=== PATIENT | female | born 1985 | race Caucasian/White ===

== ENCOUNTER → 2017-07-17 09:59 | Outpatient (CLI) | payer MEDICAID, SELFPAY ==
[2017-07-21 12:54] LABS: HPV APTIMA, High Risk Negative (Negative)
== END ==
PROVIDERS: Visit Provider Obstetrics & Gynecology
DX: Z12.4 Encounter for screening for malignant neoplasm of cervix (principal)
CPT/HCPCS: 88175; G0145

== ENCOUNTER → 2017-12-05 15:05 | Outpatient (CLI) | payer OTHER, MEDICAID, SELFPAY ==
[2017-12-05 18:00] LABS: Chlamydia Trachomatis by PCR Negative (Negative); Neisserai gonorrhoeae by PCR Negative (Negative); Probe Check PASS; Sample Adequacy Control PASS; Specimen Processing Control PASS; Trichomonas Vag DNA by PCR Negative (Negative)
== END ==
PROVIDERS: Visit Provider Obstetrics & Gynecology
DX: Z11.3 Encounter for screening for infections with a predominantly sexual mode of transmission (principal)
CPT/HCPCS: 87491; 87591; 87661

== ENCOUNTER → 2020-04-28 09:22 | Outpatient (CLI) | payer OTHER, MEDICAID, SELFPAY ==
[2020-05-03 16:24] LABS: HPV APTIMA, High Risk Negative (Negative)
== END ==
PROVIDERS: Visit Provider Student in an Organized Health Care Education/Training Program
DX: Z12.4 Encounter for screening for malignant neoplasm of cervix (principal)
CPT/HCPCS: 36415; 84146; 87624; 88175; G0145

== ENCOUNTER 2020-06-01 12:33 | Day surgery (SDC) | payer OTHER, MEDICAID, SELFPAY ==
--- NOTE | 2020-05-26 10:43 | PCM.HPOB.BLA ---
History and Physical Date of Admission: 06/01/20 HISTORY OF PRESENT ILLNESS: On 05/26/2020, Nika Rivera, a 34 year old female 2 0 0 0 2, presented for hysteroscopy, dilation and curettage, endometrial ablation Reports irregular menses that occur every other week. Bleeding is heavy. Associated signs and symptoms are cramping, fatigue, headaches, breast tenderness, and painful IC. ALLERGIES: No Known Drug Allergies MEDICATIONS HISTORY: Patient is also takin. bupropion HCl SR 150 mg tablet,12 hr sustained-release, One pill by mouth twice a day PAST HISTORY: Denies SURGICAL HISTORY: 1. , x2 2006, 2010 2. tubal 3. [place] Teeth Removal MENSTRUAL HISTORY: LMP Known?- DefiniteAmount/Duration - 6-21 days, Regularity - Irregular, Frequency - monthly days, LMP - 05/18/20, Age Onset Menarche - 12 PAST PREGNANCIES: Total Pregnancies - 2; Full Term Pregnancies - 2; Premature - 0; Abortions, Induced - 0; Abortions, Spontaneous - 0; Ectopics - 0; Multiple Births - 0; Living Children - 2 FAMILY HISTORY: Father - Heart disorder; MaternalGreatgrandparent - Ovarian Carcinoma; SOCIAL HISTORY: Alcohol Use - RARELY Smoking - 10 cigarettes a day Drugs - denies BP- 104/62 Sitting, Right arm, regular cuff Weight- 136.60 lbs Height- 63.00 inch BMI:24.25 REVIEW OF SYSTEMS: GENERAL - Denies fever, or chills SKIN - Denies skin changes EYES - Denies visual changes EARS - Denies difficulty hearing NOSE - Denies nasal congestion or bleeding MOUTH - Denies sore throat or difficulty swallowing NECK - Denies pain or swelling RESPIRATORY - Denies shortness of breath or wheezing CARDIOVASCULAR - Denies palpitations or chest pain GASTROINTESTINAL - Denies nausea, vomiting, diarrhea, constipation GENITOURINARY - Denies dysuria, frequency of urination, incontinence of urine MUSCULOSKELETAL - Denies joint or muscle pain NEUROLOGICAL - Denies localized numbness or weakness PSYCHIATRIC - Denies depression or anxiety ENDOCRINE - Denies heat or cold intolerance, weight loss or gain HEMATO-IMMUNOLOGIC - Denies excesive bleeding with cuts CONSTITUTIONAL - NAD, well nourished, and well developed SKIN - No rash, lesions, or ulcers HEENT - Normocephalic, PERRLA, EOMI NECK - No nodes, no nuchal rigidity and thyroid normal size and texture LYMPH NODES - Palpation of lymph nodes in neck and groins within normal limits LUNGS - CTA x2 without wheezes, crackles or rales CARDIAC - Regular rate and rhythm without rubs, murmurs, or gallops ABDOMEN - Without hepatosplenomegaly, distention, masses, rebound, or guarding; normal bowel sounds; no hernias EXTREMITIES - No edema or calf tenderness NEUROLOGICAL - Cranial nerves II-XII grossly intact PSYCHIATRIC - A and O to time, place, person, mood and affect DETAILED PELVIC EXAM External Genital Vagina - non-tender without lesions Urethra/Urethral Meatus - non-tender Bladder - non-tender Vagina - vaginal clark are pink and moist without loss of rugae and no evidence of atropy Cervix - without cervical motion tenderness and has normal size and features without evident lesions Uterus - 5-6 cm in size, mobile and nontender Adnexa - clear without massess or tenderness ASSESSMENT: 1. Excessive And Frequent Menstruation With Regular Cycle 2. Routine Gynecologic Exam no abnormal findings PLAN BY DIAGNOSIS: 1. Excessive And Frequent Menstruation With Regular Cycle Heavy menses., Irregular. Planned for hysteroscopy, D and ablation R/B/A discussed. RIsks include but are not limited to: risk of bleeding to the point of transfusion, infection, injury to surrounding tissues, uterine perforation, ICU admission, VTE. Pt aware consent signed.
[2020-05-26 11:43] LABS: Hematocrit 39.7 % (37-47); Hemoglobin 12.3 g/dL (12.0-15.0); Mean Corpuscular Hgb 26.9 pg (27.0-32.0); Mean Corpuscular Volume 86.7 fL (81-99); Platelet Count 261 K/mm3 (150-450); RBC Distribution Width CV 15.3 % (11.6-14.6); RBC Distribution Width SD 47.8 fl (35.1-43.9); Red Blood Count 4.58 M/mm3 (4.2-5.4); White Blood Count 5.2 K/mm3 (4.4-11.0)
--- NOTE | 2020-06-01 | EMB_PTH ---
PATIENT: DEMETRIUS VALLE LOC: [facility] [place] U#:[id number] AGE/SX: 34/F ROOM: RE06/01/[address]: Dr. Kim Patel DO : 1985 BED: DIS: 06/01/2020 SPEC #: [id number] RECD: 06/02/20 07:41 STATUS: ZANDRA REClyde #: [id number] NEENA: 06/01/20 00:[address]: Kim Patel DEPT: SURGICAL PATHOLOGY RECD BY: Isac Jones ENTERED: 06/02/20 08:07 SP TYPE: ENDOM BX/C DIOGENES DR: Dr. Fritz Culp MD Tissues: Endometrium, NOS Procedures: Surgery Specimen Level IV HEADER OPERATION: Hysteroscopy, D & C Briseida PRE-OP DIAGNOSIS: Excessive and frequent menstruation TISSUE SUBMITTED: Endometrial curettings MICROSCOPIC DIAGNOSIS Endometrium, curettings: Secretory endometrium. AM:francois 06/05/2020 MICROSCOPIC DESCRIPTION Slides are reviewed. GROSS DESCRIPTION Received in fixative is one container labeled with the patient's name and designated endometrial curettings. The specimen consists of multiple irregular fragments of light fowler soft tissue that in aggregate measure 2.8 x 1 x 0.1 cm. The specimen is totally submitted in one cassette. / AM:francois 06/02/20 TC:5 CPT: 50525
[2020-06-01] MEDS: Lactated Ringers 1,000 ML 100 ML IV ×2 (12:00→16:31)
[2020-06-01 13:40] VITALS: BP 105/68; PULSE 78; RESP 16; TEMP 37.3; O2SAT 100; BMI 23.8
--- NOTE | 2020-06-01 15:33 | PCM.OPRPT ---
Report of Operation Date of Procedure: 06/01/20 Pre-Operative Diagnosis: Menorrhagia Post-Operative Diagnosis: Menorrhagia Surgery/Procedure Performed:: Hysteroscopy, dilation and curettage, endometrial ablation Description of Surgical Findings:: Normal-appearing external genitalia. Minimal uterine descensus. Uterus sounded 8 cm, cervical length 4 cm. Fluffy endometrial lining noted. Type of Anesthesia:: MAC Specimen's removed: Endometrial curettings Estimated Blood Loss (mL): 5 cc Fluids Replaced: 1000 cc Description of Procedure: Patient taken to the operating room, MAC anesthesia induced. Patient placed in the dorsal lithotomy position and prepped and draped in the usual sterile fashion. Bladder drained approximately 150 cc clear urine. Weighted speculum placed in posterior vagina and Vazquez retractor used to visualize the cervix which was grasped with single-tooth tenaculum. Cervix sequentially dilated and uterus sounded to 8 cm. Hysteroscope placed through the cervical canal and inspection of the endometrial cavity completed noting fluffy endometrial lining. Thickened endometrium blocked visualization of tubal ostia. Hysteroscope removed. Briseida device opened and placed through the cervical canal, and in place. Briseida passed all 3 safety checks and ablation was completed. Device removed. Hysteroscope replaced with inspection of the medial cavity noting ablation. Removed. Single-tooth tenaculum removed from anterior lip of the cervix. Right tenaculum site was oozing, silver nitrate was used and applied at this location, continued oozing noted. 1 [id number] stitch placed at the right tenaculum site with hemostasis. Weighted speculum removed. At the end of the procedure all needle, lap, sponge counts correct x3. - Admit VTE Documentation VTE Present on Admission: No VTE Mechan Device Prophylaxis: SCD's
--- NOTE | 2020-06-01 15:34 | DCINST_ITS ---
Discharge Activity: Return to Normal Activity, May Shower May resume sexual activity in: 3 weeks Weight Bearing Status: Weight bearing as tolerated Call your doctor if you observe: Fever of 101 or Higher, Coldness, Increased Pain, Inability to urinate, Inability to have a bowel movement, Using more than one pad per hour, Uncontrolled pain Allergies/Adverse Reactions: Allergies No Known Allergies Allergy (Verified 06/01/20 13:38) Medications to take at Discharge Bupropion HCl [Wellbutrin Xl] 150 mg PO BID 05/25/20 Primary Care Physician: Fritz Culp MD [Primary Care Provider] - Test Results: Test results from this visit will be discussed in further detail at your follow- up appointment, if applicable. Please Follow Up With: Kim Patel DO When: 2 weeks
[2020-06-01] MEDS: Silver Nitrate (BKC) 1 EACH (16:22)
[2020-06-01 16:35] VITALS: BP 100/62; BP 105/68; PULSE 89; RESP 16; TEMP 36.1; O2SAT 100
[2020-06-01 16:40] VITALS: BP 101/65; BP 105/68; PULSE 94; RESP 16; O2SAT 100
[2020-06-01 16:45] VITALS: BP 105/68; BP 105/75; PULSE 88; RESP 16; O2SAT 100
[2020-06-01 16:50] VITALS: BP 105/68; BP 105/75; PULSE 89; RESP 16; TEMP 36.2; O2SAT 100
[2020-06-01 17:28] VITALS: BP 105/68; BP 110/75; PULSE 70; RESP 16; TEMP 36.6; O2SAT 100
== END 2020-06-01 17:36 | disposition home or self-care (01) ==
LOC: SDC 12:34 → AC 12:34
PROVIDERS: PCP Family Medicine; Referring Provider Student in an Organized Health Care Education/Training Program; Visit Provider Student in an Organized Health Care Education/Training Program
PROC: 0U5B8ZZ Destruction of Endometrium, Via Natural or Artificial Opening Endoscopic (ICD-10-PCS; CPT 58558; principal; 2020-06-01 14:05)
DX: N92.1 Excessive and frequent menstruation with irregular cycle (principal); Z20.828 Contact with and (suspected) exposure to other viral communicable diseases; F17.210 Nicotine dependence, cigarettes, uncomplicated; F41.9 Anxiety disorder, unspecified; F32.9 Major depressive disorder, single episode, unspecified; Z79.899 Other long term (current) drug therapy; K21.9 Gastro-esophageal reflux disease without esophagitis
CPT/HCPCS: 58563; 36415; 85027; 86850; 86900; 86901; 87426; 88305; C9803; J7120; J2405

== ENCOUNTER → 2022-11-05 | Outpatient (CLI) | payer OTHER, SELFPAY ==
--- NOTE | 2022-11-05 08:05 | MRI_ITS ---
STUDY: MRI BRAIN WITH AND WITHOUT CONTRAST (ATTENTION INTERNAL AUDITORY CANALS - I.A.C.''s) REASON FOR EXAM: Female, 37 years old. ASYMMETRIC HEARING LOSS, TINNITUS TECHNIQUE: Standardized multiplanar fat and water weighted pulse sequences were obtained. 13 mL of IV Clariscan was administered for the contrast portion of the examination. COMPARISON: None. FINDINGS: Normal bilateral temporal bones. Normal bilateral internal auditory canals. There is no demonstrated intracanalicular or cisternal vestibular schwannoma (acoustic neuroma). There is no enhancement of the bilateral VIIth or VIIIth cranial nerves. Normal bilateral cochlea, vestibules and semicircular canals. Normal size of the ventricles and extra-axial spaces for the patient''s age. Normal white matter tracts of the supratentorial brain. Normal bilateral basal ganglia. Normal thalami. Normal flow voids within the major intracranial circulation suggesting patency by spin echo criteria. Normal venous enhancement. There is no enhancing intra-axial or extra-axial abnormality. There is no extra-axial fluid accumulation. Normal sella turcica, pituitary gland, infundibular stalk, optic chiasm and hypothalamus. Normal tectal plate and pineal gland. Normal midbrain, gustabo and medulla. Normal cerebellum. Normal basal cisterns. No demonstrated orbital abnormality, within the constraints of a routine brain study. Normal visualized paranasal sinuses. Normal calvarium and skull base. Normal visualized soft tissue structures. Normal visualized upper cervical spine. MRI/Brain W/WO Contrast IMPRESSION: Normal unenhanced and enhanced MRI of the brain and bilateral internal auditory canals (I.A.C''s). Electronically Signed: Garcia Knight MD at 10:29 EDT ,
== END | disposition home or self-care (01) ==
PROVIDERS: PCP Family Medicine; Referring Provider Otolaryngology; Visit Provider Otolaryngology
DX: H90.3 Sensorineural hearing loss, bilateral (principal); H93.11 Tinnitus, right ear
CPT/HCPCS: 70553

== ENCOUNTER 2024-12-13 03:27 | Emergency (ER) | payer OTHER, SELFPAY ==
--- OUTSIDE RECORDS SUMMARY | 2024-09-28 10:09 | XMS RPT_ITS ---
Author Name Auto Generated Organization OH[facility] Care Team Providers Care Bag Sealer Name Role Phone KENN ATKINSON Primary Care Unavailable GOPI BURLESON Attending Unavailable PROBLEMS DATE TYPE CONDITION / CODE ATTENDING STATUS [facility] 09/28/2024 Active Wellness examina tion / Z00.00(ICD-10) GOPI BURLESON Active [facility] 09/28/2024 Active RHETT (generalized anxiety disorder) / F41.1(ICD-10) GOPI BURLESON Active [facility] 09/28/2024 Active Depression, unsp ecified depression type / F32.A(ICD-10) GOPI BURLESON Active [facility] 09/28/2024 Active Patellofemoral s yndrome of both knees / M22.2X1(ICD-10) GOPI BURLESON Active [facility] 09/28/2024 Active Patellofemoral s yndrome of both knees / M22.2X2(ICD-10) GOPI BURLESON Active [facility] 09/28/2024 Active Screening for de pression / Z13.31(ICD-10) GOPI BURLESON Active [facility] 09/28/2024 Active Encounter for sc reening mammogram for breast cancer / Z12.31(ICD-10) GOPI BURLESON Active [facility] PROCEDURES No Procedure Records Found RESULTS CNOV Observed: 09/28/2024 10:40 AM Status: COMPLETED Source: [facility] NIKA VALLE ([id number]) 1985 F Date Time Provider Department 09/28/24 10:40 AM GOPI BURLESON During your visit today, we recorded the following information about you: Pulse Blood pressure Weight Height 68/minute 110/75 64 kg 1.615 m Gopi Burleson APRN.NITROGEN OPERATOR 09/28/2024 10:48 AM Signed Chief Complaint Patient presents with: Physical HPI Nika Valle is a 39 year old female who presents here today for physical . Nika Valle is a 39-year-old female. Nika has a history of exercise-induced asthma during childhood but denies current symptoms. She also has a history of allergies to bee stings and seasonal allergens but reports no recent reactions to bee stings and denies any current allergies. She is currently taking bupropion for anxiety and depression, which she administers twice daily. She also uses triamcinolone acetonide for canker sores, a condition that runs in her family. Additionally, she has a prescription for naproxen for knee pain but uses it infrequently, noting that her current supply is . Declines mammogram. States that very infreuquently, she feels food get stuck in her throat. Occuring over the past 1 year. Not consistent and not frequently. Does not matter what she eats. No choking Past medical history, appointments, medications, allergies reviewed. Previous Medical History PAST MEDICAL HISTORY Diagnosis Date Allergic rhinitis 05/20/2016 Mild intermittent asthma with acute exacerbation (HCC) 05/20/2016 Patellofemoral syndrome of both knees Tobacco abuse Unspecified asthma(493.90) Previous Surgical History PAST SURGICAL HISTORY Procedure Laterality Date ANESTH, SECTION 02/28/11; 2006 with TL TUBAL LIGATION HX Family History FAMILY HISTORY Problem Relation Age of Onset None Mother Ischemic Heart Disease Father 54 stent placed Hypertension Father Diabetes Maternal Grandmother Dementia Maternal Grandfather Hypertension Paternal Grandfather Hyperlipidemia Paternal Grandfather Patient Allergies ALLERGIES Allergen Reactions Seasonal Allergies Other: See Comments Current Medications Current Outpatient Medications on File Prior to Visit Medication Sig buPROPion SR (WELLBUTRIN SR) 150 mg 12 hr tablet Take 1 tablet by mouth two times a day. naproxen (NAPROSYN) 500 mg tablet Take 1 tablet by mouth twice daily as needed (for pain/inflammation). Take with food. Clobetasol Propionate 0.05 % gel Apply 1 application to affected area twice daily. No current facility-administered medications on file prior to visit. Social History Social History Tobacco Use Smoking status: Former Current packs/day: 0.00 Average packs/day: 0.5 packs/day for 16.0 years (8.0 ttl pk-yrs) Types: Cigarettes Start date: 07/13/2006 Quit date: 07/13/2022 Years since quittin.2 Smokeless tobacco: Never Tobacco comments: 10-12 per day (only half of a cigarette) Vaping Use Vaping status: Never Used Substance Use Topics Alcohol use: No Comment: very rare Drug use: No REVIEW OF SYSTEMS: as above Reviewed relevant PMHx, PSHx, Social Hx, current medications and allergies. EXAM: BP 110/75 (BP Site: Left Arm, BP Position: Sitting, BP Cuff Size: Regular Adult) Pulse 68 Ht 161.5 cm (5' 3.58") Wt 64 kg (141 lb) LMP 06/15/2018 (Approximate) SpO2 98% BMI 24.52 kg/m? General Appearance: Well appearing, alert, in no acute distress, well-hydrated, well nourished.. Head: Normocephalic, no masses, lesions, tenderness or abnormalities. Eyes: Anicteric sclera. Pupils are equally round and reactive to light. Extraocular movements are intact. . Ears: External ears normal, canals clear. Nose/Sinuses: Nares normal, septum midline, mucosa normal, no drainage or sinus tenderness. Oropharynx: Lips, mucosa, and tongue normal, teeth and gums normal, oropharynx normal. Neck: Supple, no adenopathy; thyroid symmetric, normal size Lungs: Lungs clear to auscultation. No wheezing, rhonchi, rales.. Heart: RRR without murmur, gallop, or rubs. No ectopy. Abdomen: Normal abdominal exam, Abdomen soft, non-tender. Bowel sounds normal. No masses, organomegaly. Extremities: No deformities, edema Health Maintenance List Mammogram Screening due on 09/28/2025 DTaP,Tdap,Td Vaccine(1 - Tdap) due on 09/28/2025 Influenza Vaccine(1) due on 11/15/2024 Annual PCP Team Chronic Disease Visit due on 09/28/2025 Depression Screening due on 09/28/2025 Cervical Cancer Screening due on 06/15/2026 HIV Screening Completed Hepatitis B Vaccine Discontinued Hepatitis C Screening Discontinued Covid-19 Vaccine Discontinued 1. Wellness examination (Z00.00) Patient is a 39-year-old female with a history of seasonal allergies, sports-induced asthma, and tinnitus. Reports occasional dysphagia with solid foods. No current use of Anaprox for knee pain. Declines mammogram screening at this time. - Discussed the importance of regular health screenings, including mammograms and cholesterol checks. - Recommended updating tetanus vaccine if not done in the last 10 years. - Advised monitoring dysphagia symptoms; if persistent or worsening, consider further evaluation. - Follow-up as needed. 2. RHETT (generalized anxiety disorder) (F41.1) Depression, unspecified depression type (F32.A) Currently managed with bupropion (Wellbutrin) twice daily. - Continue bupropion as prescribed. - Monitor for any changes in symptoms. 3. Patellofemoral syndrome of both knees (M22.2X1) Occasional knee pain, previously managed with Anaprox, but not used frequently. - Continue Anaprox as needed for knee pain. - Monitor for any changes in symptoms. 4. Screening for depression (Z13.31) 5. Encounter for screening mammogram for breast cancer (Z12.31) Patient declines mammogram screening at this time. - Discussed the importance of mammogram screening for early detection of breast cancer. - Patient advised to reconsider and notify if she decides to proceed with screening in the future. Gopi Burleson APRN.YI RTO in 12 months, sooner if needed. This note was partly generated using [employer] voice recognition dictation and may contain some misspelled or inaccurate words missed on review. Recording using [employer] software for draft documentation of the visit was discussed with the patient/authorized tax representative; all questions welcomed and answered. Patient/authorized tax representative agreed to proceed Allergies As of Date: 09/28/2024 Noted Allergy Reaction SEASONAL ALLERGIES 05/20/2016 14 - Other: See Comments Date Reviewed: 09/28/2024 Reviewed by: Gopi Burleson APRN.NITROGEN OPERATOR - Fully Assessed Reason for Visit: Physical [83] Primary Visit Diagnosis:Wellness examination [Z00.00] Other Visit Diagnoses:RHETT (generalized anxiety disorder) [F41.1] Depression, unspecified depression type [F32.A] Patellofemoral syndrome of both knees [M22.2X1, M22.2X2] Screening for depression [Z13.31] Encounter for screening mammogram for breast cancer [Z12.31] Order(s):buPROPion SR (WELLBUTRIN SR) 150 mg 12 hr tabletTake 1 tablet by mouth two times a day.Disp: 60 tabletRfl: 1 naproxen (NAPROSYN) 500 mg tabletTake 1 tablet by mouth two times a day as needed (for pain/inflammation). Take with food.Disp: 60 tabletRfl: 5 DEPRESSION SCREENING [8412095] Order #: [id number]: 1 COMPREHENSIVE METABOLIC PANEL [SQCMP] Order #: [id number] FUTURE LIPID PANEL, FASTING [SQLIPB] Order #: [id number] FUTURE Prescriptions as of 09/28/2024 - buPROPion SR (WELLBUTRIN SR) 150 mg 12 hr tablet Take 1 tablet by mouth two times a day. - naproxen (NAPROSYN) 500 mg tablet Take 1 tablet by mouth two times a day as needed (for pain/inflammation). Take with food. - Clobetasol Propionate 0.05 % gel Apply 1 application to affected area twice daily. Problem List As Of Date 09/28/2024 Noted Resolved Supervision of normal first [Z34.00] 09/01/2006 03/20/2012 Tobacco use disorder [F17.200] 11/24/2006 09/28/2024 Tobacco use disorder complicating , ch*08/16/2010 09/29/2013 Threatened , antepartum [O20.0] 10/01/2010 03/20/2012 Suspected damage to fetus from drugs, affecting*10/01/2010 03/20/2012 Vaginal bleeding in [O46.90] 11/25/2010 01/28/2011 Abdominal cramping complicating [O26.*11/25/2010 03/20/2012 DUB (dysfunctional uterine bleeding) [N93.8] 10/28/2012 09/29/2013 Chronic pain of right knee [M25.561, G89.29] 09/15/2015 Mild intermittent asthma with acute exacerbatio*05/20/2016 Allergic rhinitis [J30.9] 05/20/2016 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 NAPROXEN 500 MG TABLET 60 t* 5 09/28/2024 Route: PO Sig: Take 1 tablet by mouth two times a day as needed (for pain/inflammation). Take with food. Medications Discontinued During This Encounter Prescriptions - EPINEPHrine (EPIPEN) 0.3 mg/0.3 mL auto-injector (Discontinued) Inject 0.3 mL intramuscularly as needed. - hydrocortisone-acetic acid (VOSOL-HC) otic solution (Discontinued) Use 3 Drops in the right ear three times daily. - nicotine (NICODERM) 14 mg/24 hr (Discontinued) Apply 1 Patch as directed every 24 hours. No smoking with patch. - naproxen (NAPROSYN) 500 mg tablet (Discontinued) Take 1 tablet by mouth twice daily as needed (for pain/inflammation). Take with food. - buPROPion SR (WELLBUTRIN SR) 150 mg 12 hr tablet (Discontinued) Take 1 tablet by mouth two times a day. Level of Service: WELLNESS EXAMS EST 40-64 YRS [[id number]] Encounter Status:Closed by GOPI BURLESON on 09/28/24 PROGRESS Observed: 09/28/2024 10:40 AM Status: COMPLETED Source: [facility] ID: [id number] Author: GOPI BURLESON APRN.NITROGEN OPERATOR Service: ? Author Type: Nurse Practitioner Type: Progress Notes Filed: 09/28/2024 10:48 Note Text: Chief Complaint Patient presents with: Physical HPI Nika Valle is a 39 year old female who presents here today for physical . Nika Valle is a 39-year-old female. Nika has a history of exercise-induced asthma during childhood but denies current symptoms. She also has a history of allergies to bee stings and seasonal allergens but reports no recent reactions to bee stings and denies any current allergies. She is currently taking bupropion for anxiety and depression, which she administers twice daily. She also uses triamcinolone acetonide for canker sores, a condition that runs in her family. Additionally, she has a prescription for naproxen for knee pain but uses it infrequently, noting that her current supply is . Declines mammogram. States that very infreuquently, she feels food get stuck in her throat. Occuring over the past 1 year. Not consistent and not frequently. Does not matter what she eats. No choking Past medical history, appointments, medications, allergies reviewed. Previous Medical History PAST MEDICAL HISTORY Diagnosis Date Allergic rhinitis 05/20/2016 Mild intermittent asthma with acute exacerbation (HCC) 05/20/2016 Patellofemoral syndrome of both knees Tobacco abuse Unspecified asthma(493.90) Previous Surgical History PAST SURGICAL HISTORY Procedure Laterality Date ANESTH, SECTION 02/28/11; 2006 with TL TUBAL LIGATION HX Family History FAMILY HISTORY Problem Relation Age of Onset None Mother Ischemic Heart Disease Father 54 stent placed Hypertension Father Diabetes Maternal Grandmother Dementia Maternal Grandfather Hypertension Paternal Grandfather Hyperlipidemia Paternal Grandfather Patient Allergies ALLERGIES Allergen Reactions Seasonal Allergies Other: See Comments Current Medications Current Outpatient Medications on File Prior to Visit Medication Sig buPROPion SR (WELLBUTRIN SR) 150 mg 12 hr tablet Take 1 tablet by mouth two times a day. naproxen (NAPROSYN) 500 mg tablet Take 1 tablet by mouth twice daily as needed (for pain/inflammation). Take with food. Clobetasol Propionate 0.05 % gel Apply 1 application to affected area twice daily. No current facility-administered medications on file prior to visit. Social History Social History Tobacco Use Smoking status: Former Current packs/day: 0.00 Average packs/day: 0.5 packs/day for 16.0 years (8.0 ttl pk-yrs) Types: Cigarettes Start date: 07/13/2006 Quit date: 07/13/2022 Years since quittin.2 Smokeless tobacco: Never Tobacco comments: 10-12 per day (only half of a cigarette) Vaping Use Vaping status: Never Used Substance Use Topics Alcohol use: No Comment: very rare Drug use: No REVIEW OF SYSTEMS: as above Reviewed relevant PMHx, PSHx, Social Hx, current medications and allergies. EXAM: BP 110/75 (BP Site: Left Arm, BP Position: Sitting, BP Cuff Size: Regular Adult) Pulse 68 Ht 161.5 cm (5' 3.58") Wt 64 kg (141 lb) LMP 06/15/2018 (Approximate) SpO2 98% BMI 24.52 kg/m? General Appearance: Well appearing, alert, in no acute distress, well-hydrated, well nourished.. Head: Normocephalic, no masses, lesions, tenderness or abnormalities. Eyes: Anicteric sclera. Pupils are equally round and reactive to light. Extraocular movements are intact. . Ears: External ears normal, canals clear. Nose/Sinuses: Nares normal, septum midline, mucosa normal, no drainage or sinus tenderness. Oropharynx: Lips, mucosa, and tongue normal, teeth and gums normal, oropharynx normal. Neck: Supple, no adenopathy; thyroid symmetric, normal size Lungs: Lungs clear to auscultation. No wheezing, rhonchi, rales.. Heart: RRR without murmur, gallop, or rubs. No ectopy. Abdomen: Normal abdominal exam, Abdomen soft, non-tender. Bowel sounds normal. No masses, organomegaly. Extremities: No deformities, edema Health Maintenance List Mammogram Screening due on 09/28/2025 DTaP,Tdap,Td Vaccine(1 - Tdap) due on 09/28/2025 Influenza Vaccine(1) due on 11/15/2024 Annual PCP Team Chronic Disease Visit due on 09/28/2025 Depression Screening due on 09/28/2025 Cervical Cancer Screening due on 06/15/2026 HIV Screening Completed Hepatitis B Vaccine Discontinued Hepatitis C Screening Discontinued Covid-19 Vaccine Discontinued 1. Wellness examination (Z00.00) Patient is a 39-year-old female with a history of seasonal allergies, sports-induced asthma, and tinnitus. Reports occasional dysphagia with solid foods. No current use of Anaprox for knee pain. Declines mammogram screening at this time. - Discussed the importance of regular health screenings, including mammograms and cholesterol checks. - Recommended updating tetanus vaccine if not done in the last 10 years. - Advised monitoring dysphagia symptoms; if persistent or worsening, consider further evaluation. - Follow-up as needed. 2. RHETT (generalized anxiety disorder) (F41.1) Depression, unspecified depression type (F32.A) Currently managed with bupropion (Wellbutrin) twice daily. - Continue bupropion as prescribed. - Monitor for any changes in symptoms. 3. Patellofemoral syndrome of both knees (M22.2X1) Occasional knee pain, previously managed with Anaprox, but not used frequently. - Continue Anaprox as needed for knee pain. - Monitor for any changes in symptoms. 4. Screening for depression (Z13.31) 5. Encounter for screening mammogram for breast cancer (Z12.31) Patient declines mammogram screening at this time. - Discussed the importance of mammogram screening for early detection of breast cancer. - Patient advised to reconsider and notify if she decides to proceed with screening in the future. Gopi Burleson APRN.NITROGEN OPERATOR RTO in 12 months, sooner if needed. This note was partly generated using [employer] voice recognition dictation and may contain some misspelled or inaccurate words missed on review. Recording using [employer] software for draft documentation of the visit was discussed with the patient/authorized tax representative; all questions welcomed and answered. Patient/authorized tax representative agreed to proceed ALLERGIES DATE TYPE / CODE NAME / CODE REACTION SEVERITY SOURCE 05/20/2016 Environ/[id number] 006(SNOMED CT) SEASONAL ALLERGIES OTHER: SEE Toya Marshall [facility] ENCOUNTERS ADMIT/DISCHARGE ACCOUNT NUMBER ADMITTING ENCOUNTER CLASS LOC ATION SOURCE 09/28/2024/ 5 [id number] Ambulatory [facility] Hospital[facility] ing[facility] PAYERS ENCOUNTER GUARANTOR PAYER SUBSCRIBER SOURCE 09/28/2024 Primary Insuranc e:[facility] CHOICE PLUSPolicy Number: [id number] Date:[id number] Name:Tino WESTDEEPOB: [id number] [place] [address] [facility]
[2024-12-13 03:28] VITALS: BP 138/85; PULSE 81; RESP 16; TEMP 36.4; O2SAT 93; BMI 24.0
[2024-12-13 03:53] LABS: Hematocrit 45.0 % (37-47); Hemoglobin 15.1 g/dL (12.0-15.0); Immature Granulocytes Count 0.030 X10^3/uL (0.0-0.0); Mean Corp Hgb Conc 33.6 g/dL (32-36); Mean Corpuscular Volume 90.9 fL (81-99); Mean Platelet Vol. 9.1 fl (6.2-12.0); NRBC Flagged by Analyzer 0 % (0-5); Platelet Count 326 K/mm3 (150-450); RBC Distribution Width CV 12.8 % (11.6-14.6); RBC Distribution Width SD 42.6 fl (35.1-43.9); Red Blood Count 4.95 M/mm3 (4.2-5.4); White Blood Count 9.0 K/mm3 (4.4-11.0)
[2024-12-13] MEDS: 0.9% Normal Saline (1000mL) 1,000 ML 999 ML IV (03:53)
[2024-12-13 04:00] LABS: Internal QC Validated? YES +Cl - CLEAR BKGD; Pregnancy, Serum, hCG Quali. NEGATIVE Negative
[2024-12-13 04:01] LABS: Record Kit Lot#, Serum Preg. 0000964736
--- NOTE | 2024-12-13 04:01 | EX.ED.DYSGE1 ---
HPI History of Present Illness Chief Complaint: Abd Pain Narrative Narrative: Patient is a 39-year-old female who presented to the emergency department the chief complaint of abdominal pain nausea/vomiting/diarrhea since yesterday morning around 5 AM. She denies any recent sick contacts and states that it has become more persistent therefore she came here to be further evaluated. States that she feels like she is very thirsty but cannot keep ending down therefore she she came here. Patient states that she has had previous and tubal ligation but denies any other abdominal surgeries. [facility] Medical History Anxiety Home Medications Medication Instructions Recorded Last Taken Type bupropion HCl 150 mg 24 hr tablet, 150 mg PO BID 05/25/20 Unknown History extended release dicyclomine 20 mg tablet 20 mg PO TID PRN abdominal pain 12/13/24 Unknown Rx #20 tabs ondansetron 4 mg disintegrating 4 mg PO Q6H PRN nausea and 12/13/24 Unknown Rx tablet vomiting #20 tabs Allergy/AdvReac Type Severity Reaction Status Date / Time No Known Allergies Allergy Verified 12/13/24 03:28 Surgical History H/O tubal ligation Previous section Social History Smoking Status: Former smoker ROS ROS ED ROS Narrative Constitutional: Denies any fevers or chills Abdomen: Complains of abdominal pain nausea vomiting as noted above : Denies any urinary symptoms Neurological: Denies numbness, weakness, tingling Musculoskeletal: Denies back pain Skin: Denies any rashes or lesions EXAM Physical Exam Narrative Exam Narrative: General: Patient is lying in bed rest comfortably did not appear to be in acute distress Head: Atraumatic, normocephalic Eyes: PERRL bilaterally, EOMI bilateral, no conjunctival injection noted Neck: Soft, supple, trachea midline Cardiovascular: Regular rate and rhythm Respiratory: Clear to auscultation bilaterally Abdomen: Soft, nondistended, diffuse tenderness to palpation no rebound or guarding on exam Extremities: +5/5 strength noted in the bilateral lower extremities, radial pulses +2/4 in the bilateral extremities Neurological: Patient following commands knew that she was at [facility] year is 2024 Skin: Warm, dry, tact no rashes or lesions noted Const Vital Signs: 12/13/24 03:28 Temperature 97.6 F L Temperature Source Oral Pulse Rate 81 Respiratory Rate 16 Blood Pressure 138/85 H Blood Pressure Mean 102 Pulse Ox 93 MDM MDM MDM Narrative Medical decision making narrative: Patient is a 39-year-old female who presented to the emergency department the chief complaint of abdominal pain nausea vomiting diarrhea. On the differential diagnose includes but not limited to viral gastroenteritis, appendicitis, cholecystitis, pancreatitis. Once workup is obtained reviewed she will be reevaluated. Patient to get IV fluids and Zofran. As well as Bentyl. Patient CBC reviewed and showed a white blood count normal at 9, hemoglobin 15.1, platelet count 326. Patient was 139, potassium normal 3.5, creatinine was 0.83. Patient's AST and ALT are 16 and 9 respectively test was negative. Patient was given additional liter of fluid. On reevaluation the patient she is feeling much better she would like to go home at this point time. She is advised to start with a bland diet and advance as tolerated. She is vies follow-up with her doctor in the outpatient setting and return with worsening symptoms or any concerns. She is given prescriptions for Zofran and Bentyl. All question concerns answered she was discharged home in stable condition. Lab Data Labs: Laboratory Results - last 24 hr 12/13/24 03:47 WBC 9.0 RBC 4.95 Hgb 15.1 H Hct 45.0 MCV 90.9 MCH 30.5 MCHC 33.6 RDW Std Deviation 42.6 RDW Coeff of Haley 12.8 Plt Count 326 MPV 9.1 Immature Gran % (Auto) 0.300 Neut % (Auto) 67.6 Lymph % (Auto) 22.1 Letcher % (Auto) 8.2 Eos % (Auto) 1.0 Baso % (Auto) 0.8 Absolute Neuts (auto) 6.1 Absolute Lymphs (auto) 1.99 Nucleated RBC % 0 Sodium 139 Potassium 3.5 Chloride 104 Carbon Dioxide 19.2 L Anion Gap 16 H BUN 8 Creatinine 0.83 Estim Creat Clear Calc 74.53 Est GFR (MDRD) Non-Af 91 BUN/Creatinine Ratio 9.9 L Glucose 119 H Calcium 9.3 Total Bilirubin 0.72 AST 16 ALT 9 Alkaline Phosphatase 55 Total Protein 7.0 Albumin 4.5 Globulin 2.6 Albumin/Globulin Ratio 1.7 Lipase 24 Serum , Qual NEGATIVE Discharge Plan Triage Chief Complaint: Abd Pain ED Provider: Rito Beck Dx/Rx/DC Orders Clinical Impression: Viral gastroenteritis, Nausea & vomiting, Abdominal pain Prescriptions: New dicyclomine 20 mg tablet 20 mg PO TID PRN (Reason: abdominal pain) Qty: 20 0RF ondansetron 4 mg tablet,disintegrating 4 mg PO Q6H PRN (Reason: nausea and vomiting) Qty: 20 0RF No Action bupropion HCl 150 MG tablet extended release 24 hr 150 mg PO BID Primary Care Provider: Fritz Culp Referrals: Fritz Culp MD [Primary Care Provider, [facility]] Activity Restrictions/Additional Instructions: Your blood work did not show any acute findings here today. Start with a bland diet and advance as tolerated. Use the prescription sent to your pharmacy as prescribed. Return with worsening symptoms or any other concerns you likely have a viral illness. Print Language: [place] Disposition Disposition: Home, Self Care
[2024-12-13 04:13] LABS: AST(SGOT) 16 U/L (<=31); Alanine Aminotransfer ALT/SGPT 9 U/L (<=34); Albumin, Serum 4.5 g/dL (3.5-5.0); Alkaline Phosphatase 55 U/L (35-104); Anion Gap 16 (5-15); BUN 8 mg/dL (4-19); BUN/Creat Ratio 9.9 RATIO (10-20); Calcium,Total 9.3 mg/dL (7.6-11.0); Carbon Dioxide 19.2 mmol/L (21.0-32.0); Chloride 104 mmol/L (98-108); Estimated Creatinine Clearance 74.53 ml/min (50-250); Globulin 2.6 g/dL (2.2-4.2); Glucose 119 mg/dL (70-99); Lipase 24 U/L (13-75); Potassium 3.5 mmol/L (3.3-5.1)
[2024-12-13 05:08] VITALS: BP 134/76; PULSE 78; RESP 16; TEMP 37.1; O2SAT 98
== END 2024-12-13 05:15 | disposition home or self-care (01) ==
PROVIDERS: Emergency Provider Emergency Medicine; PCP Family Medicine; Visit Provider Emergency Medicine
DX: A08.4 Viral intestinal infection, unspecified (principal); F41.9 Anxiety disorder, unspecified; Z79.899 Other long term (current) drug therapy; Z87.891 Personal history of nicotine dependence
CPT/HCPCS: 80053; 83690; 84703; 85025; 96361; 96374; 99283; A4216; J2405